=== PATIENT | female | born 2000 | race Caucasian/White ===

== ENCOUNTER 2021-04-09 13:23 | Emergency (ER) | payer OTHER ==
[2021-04-09 15:21] LABS: BASOPHIL 0.4 % (0-2); EOSINOPHIL 0.6 % (0-5); HCT 42.5 % (37.0-47.0); HGB 14.8 g/dl (12.5-16.0); MCH 30.5 pg (25.0-31.0); MCHC 34.8 g/dL (32.0-36.0); MCV 87.4 fL (78.0-100.0); NEUTROPHIL 57.6 % (41-80); NRBC 0; PLT 231 K/uL (150-400); RBC 4.86 M/uL (4.20-5.40); RDW 12.2 % (11.5-14.0)
[2021-04-09 16:01] LABS: PRO-BNP 26 pg/mL (<125)
[2021-04-09 16:03] LABS: ALBUMIN 3.9 g/dL (3.4-5.0); ALKALINE PHOSHATASE 62 U/L (46-116); ALT 21 U/L (14-59); AST 20 U/L (15-37); BILIRUBIN - TOTAL 0.2 mg/dL (0.2-1.0); BUN 10 mg/dL (7-18); BUN/CREAT RATIO (CALC) 13.7 RATIO; C-REACTIVE PROTEIN < 0.20 mg/dL (<=0.90); CHLORIDE 106 mmol/L (98-107); CO2 (BICARBONATE) 26 mmol/L (21-32); CREATININE 0.73 mg/dL (0.51-0.95); GLOBULIN (CALCULATION) 3.9 g/dL; GLUCOSE 94 mg/dL (74-106); POTASSIUM 3.9 mmol/L (3.5-5.1); TOTAL PROTEIN 7.8 g/dL (6.4-8.2)
[2021-04-09] MEDS ORDERED: ZPAK PO (18:17)
[2021-04-09] MEDS ORDERED: IBUPROFEN800 MG PO (18:17)
== END 2021-04-09 18:32 | disposition home or self-care (01) ==
LOC: FER 13:23
PROVIDERS: Emergency Medicine Emergency Medical Services
DX: R06.02 Shortness of breath (principal); R00.0 Tachycardia, unspecified; F17.210 Nicotine dependence, cigarettes, uncomplicated; Z88.8 Allergy status to other drugs, medicaments and biological substances; Z20.822 Contact with and (suspected) exposure to COVID-19
CPT/HCPCS: 36415; 71250; 80053; 83880; 84484; 84703; 85025; 85379; 86140; 93005; U0002